=== PATIENT | female | born 1990 | race Hispanic/Latino ===

== ENCOUNTER 2018-04-23 12:01 | Inpatient (IN) | payer OTHER ==
[2018-04-23] MEDS ORDERED: Ringers Lactate 1,000 ML IV PRN (13:00)
[2018-04-23] MEDS ORDERED: Ringers Lactate 1,000 ML IV SCH (13:00)
[2018-04-23] MEDS ORDERED: CEFAZOLIN/SWI 2gm 2 GM/20 ML SYR IV SCH (13:15)
--- NOTE | 2018-04-23 13:26 | RAD REPORT ---
EXAM DESCRIPTION: RAD - Abdomen 1 View (KUB) - 04/23/2018 12:59 pm CLINICAL HISTORY: . Assess presentation FINDINGS: Breech presentation. Spine maternal right
[2018-04-23 13:35] LABS: RPR Titer ND
[2018-04-23 13:39] LABS: Urine Appearance CLEAR; Urine Bilirubin NEGATIVE (NEG); Urine Blood 3+ (NEG); Urine Color DK YELLOW; Urine Glucose NEGATIVE (NEG); Urine Protein TRACE (NEG); Urine Specific Gravity 1.025 (1.005-1.030)
[2018-04-23 13:41] LABS: Absolute Lymphocytes (CBC) 2.2 K/uL (0.7-4.9); Absolute Monocytes 0.7 K/uL (0.1-1.3); Absolute Neutrophil 5.5 K/uL (1.8-8.0); Basophils % 0.4 % (0-1.3); Eosinophils % 1.9 % (0-4.4); Hematocrit 40.9 % (36.0-45.0); Lymphocytes % 25.5 % (15.3-44.8); MCH 30.5 pg (27.0-35.0); Monocytes % 7.8 % (3.3-12.3)
[2018-04-23 13:43] LABS: Urine Microscopic Reflex ORDER UMIC
[2018-04-23] MEDS ORDERED: CARBOPROST TROME 250 MCG/ML IM ONE (13:50)
[2018-04-23] MEDS ORDERED: METHYLERGONOVINE 0.2MG/ML AMP IM ONE (13:50)
[2018-04-23 13:51] LABS: Protime INR 1.03
--- NOTE | 2018-04-23 14:01 | CON ---
Ms. Gupta is scheduled for on Saturday because of breech presentation. Was seen in my off ice and noted to be about 1.5 cm, still breech. Fairly thin cervix. Left the office and then came t o labor and delivery an hour or so later reporting vaginal bleeding. Slight bleeding. Nothing to tolbert ggest abruption of course and the patient is having contractions. At this stage it looks like it is probably early labor. According to nurse's exam, she was 3 cm. We will get an either quick flat lat er and ultrasound to determine the baby still breech for sure, watch her for an hour or so, and if sh e is in labor, go ahead and proceed with delivery at this point. Full discussion with patient and max willis. ANNE-MARIE/BERT Voice ID: [id number] Report ID: [id number]
[2018-04-23] MEDS ORDERED: NA CIT/CITRIC AC 30 ML ORAL UDC PO ONE (14:05)
[2018-04-23 14:09] LABS: Urine Bacteria 20-50 /HPF (<20); Urine Culture Reflex Order REFLEXED
[2018-04-23] MEDS ORDERED: METOCLOPRAMIDE 10 MG/2mL INJ ONE (14:17)
[2018-04-23] MEDS ORDERED: NA CIT/CITRIC AC 30 ML ORAL UDC ONE (14:17)
[2018-04-23] MEDS ORDERED: FAMOTIDINE 20 MG/2 ML VIAL IV ONE (14:17)
[2018-04-23] MEDS ORDERED: METOCLOPRAMIDE 10 MG/2mL INJ IV SCH (15:00)
[2018-04-23] MEDS ORDERED: Oxycodone HCl/Acetaminophen 1 TAB TAB PO PRN (15:29)
[2018-04-23] MEDS ORDERED: ONDANSETRON 4 MG (ODT) TAB PO PRN (15:29)
[2018-04-23] MEDS ORDERED: ONDANSETRON 4 MG/2 ML VIAL IV PRN (15:29)
[2018-04-23] MEDS ORDERED: KETOROLAC 30 MG/ML INJ IM PRN (15:29)
[2018-04-23] MEDS ORDERED: KETOROLAC 30 MG/ML INJ IV PRN (15:29)
[2018-04-23] MEDS ORDERED: IBUPROFEN 200 MG TAB PO PRN (15:29)
[2018-04-23] MEDS ORDERED: BISACODYL 10 MG RECTAL SUPP RECT PRN (15:29)
[2018-04-23] MEDS ORDERED: ACETAMINOPHEN 500 MG TAB PO PRN ×2 (15:29)
[2018-04-23] MEDS ORDERED: D5LR 1,000 ML with OXYTOCIN 20 UNIT IV SCH ×2 (16:00)
[2018-04-23] MEDS ORDERED: OXYTOCIN/LR 20 UNIT/1,000 ML BAG IV SCH (16:00)
--- NOTE | 2018-04-23 16:23 | PN ---
The patient is scheduled for on Saturday because of breech presentation. However, comes into Labor and Delivery in labor, 3 cm. Definite breech presentation. Bloody show. Tiffany every 2 -3 minutes. We have hydrated her. Dr. Ratliff is here. Full preoperative counseling has been given in the office, in fact H and P was done today, and we will proceed on with expeditious for delivery. ANNE-MARIE/BERT Voice ID: [id number] Report ID: [id number]
[2018-04-23] MEDS ORDERED: INFLUENZA VACCINE (for 3y+) 0.5 ML DOSE IMVAC ONE (17:00)
--- NOTE | 2018-04-23 19:50 | OP ---
Surgeon: Reynaldo Mai MD Glass Ribbon Machine Operator: Dr. Ratliff' group. A 38 weeks 3 days, breech presentation. Scheduled for on Saturday. Went into an active labor . Decision was made to proceed with section. Infection, blood loss, anesthetic complicatio ns, injury to bladder, bowel, ureter, postoperative complications, clots in legs, pneumonia discussed . The patient knows fully well this does not constitute all the possible problems that could occur d uring or following surgery. Anesthesia: Carin Rodriguez for anesthesia. Spinal block anesthesia was performed . Procedure In Detail: The patient was prepped and draped. Timeout was performed. A Pfannenstiel inc ision was then created. Incision was carried to the fascia. Fascia was incised and incision carried transversely bilaterally. Anterior fascial plane was developed with both blunt and sharp dissection , then posterior fascia plane. Rectus muscle was . Peritoneum entered bluntly. Low transv erse uterine incision created. A 7 pound, 15 ounce male delivered without difficulties. Apga rs 9 and 9. Cord blood specimen was obtained. The placenta was removed manually. Uterus cleared of clot and blood and exteriorized. Cervical os was dilated with ring clamp. The uterus closed with a running-locked stitch of 1 chromic. A small bleeders fulgurated in the bladder flap. Gutters clear ed of clot and blood. Uterus was replaced in the peritoneal cavity. Reinspection of suture line michelle wed no further bleeding. Estimated blood loss during the procedure 850 cc. Muscles were reapproxima cristina using 0 Vicryl subcutaneous. The fascia was closed using PDS #1, subcutaneous tissue was closed with 2-0 plain. Absorbable lemuel placed and then metal lemuel. The patient been given 2 g of Anc ef for prophylaxis. Tolerated all procedures well. Transferred back to her room in good condition. Final Diagnoses: Term intrauterine , 38 weeks 3 days, active labor, primary sectio n for breech presentation. Spinal block anesthesia. ANNE-MARIE/BERT Voice ID: [id number] Report ID: [id number]
[2018-04-23] MEDS ORDERED: CEFAZOLIN/SWI 2gm 2 GM/20 ML SYR IVP SCH (22:00)
[2018-04-23] MEDS ORDERED: CEFAZOLIN 2 GM in NA CHLORIDE 0.9% 100 ML IVPB ONE (22:00)
[2018-04-23 22:44] LABS: RPR (Rapid Plasma Reagin) NON-REACT (NON-REACT)
[2018-04-24] MEDS: MAGNESIUM HYDROXIDE 8% 30 ML PO PRN ×2 (09:00→21:14)
--- NOTE | 2018-04-24 09:21 | PREOPHP ---
Date of Admission: 04/23/2018 A 27-year-old, 2, para 0, at 39 weeks' and 1 day, breech presentation. Full discussion about options. Baby is well seated into the pelvis and I do not think rotation is an option. Infection, blood loss, anesthetic complications, injury to bladder, bowel, ureter, postoperative complications, clots in legs, and pneumonia discussed. The patient knows fully well this does not constitute all th e possible problems that could occur during or following surgery, and knows that future surgeries meme l have to be probably . Family History: Grandmother and several uncles with hypertension. An aunt of the maternal side with a stroke. Same side, another aunt with heart attack. Allergies: THE PATIENT HAS NO ALLERGIES. Medications: She has been on vitamins. Social History: She does not smoke. Physical Examination: HEENT: Clear. Pupils equal, round, and reactive to light and accommodation. Conjunctivae well perf used. No oral, lingual, or buccal lesions. Chest and Lungs: Clear. Heart: Without murmurs, thrills, heaves, or rubs. Breasts: Not examined. Abdomen: Term size. Extremities: Clear. Assessment And Plan: The patient is 2 cm and the baby is still definitely breech. We will give flat plate on Saturday morning to see if the baby is rotated. If it has not rotated, we will proceed with primary section for delivery. Full discussion with the patient and family member. ANNE-MARIE/BERT Voice ID: [id number]
[2018-04-24] MEDS: DIPHENHYDRAMINE 25 MG TAB/CAP PO PRN ×2 (11:28→20:57)
[2018-04-24] MEDS: Oxycodone HCl/Acetaminophen 1 TAB TAB PO PRN (14:30)
[2018-04-24] MEDS ORDERED: MAGNESIUM HYDROXIDE 8% 30 ML PO PRN (15:29)
[2018-04-25] MEDS: Oxycodone HCl/Acetaminophen 1 TAB TAB PO PRN ×2 (00:35→08:02)
--- NOTE | 2018-04-25 05:16 | DS ---
Hospital Course: A 28-year-old primigravida, 38 weeks 3 days, scheduled for section next Mo nday at 39 weeks. Went into spontaneous labor. Delivered a 7 pound, 15 ounce male at breech. Apgars 9 and 9. Spinal block anesthesia. 850 cc blood loss. Ancef for prophylaxis. Postoperativ aisha has been afebrile. Output is good. We will discontinue her Samuel and IV. If all goes well, sen d her home tomorrow afternoon, if not, Saturday morning. In my absence, she will see Dr. Brewer i f she has any problems. Full postoperative talk. Tramadol has been given for prescription to take h ome. She knows to come see me next week in the office for staple removal. Over the weekend to call Labor and Delivery if any problems such as fever, severe pain, heavy bleeding, or any other clinical problems occur. Diagnoses: At this point is intrauterine gestation, 38 weeks 3 days, breech presentation, spontaneou s labor, primary section, spinal block anesthesia. ANNE-MARIE/BERT Voice ID: [id number] Report ID: [id number]
[2018-04-25] MEDS ORDERED: INFLUENZA VACCINE (for 3y+) 0.5 ML DOSE IMVAC ONE (09:21)
[2018-04-26 20:49] LABS: HBsAG Nonreactive (Nonreactive)
== END 2018-04-25 10:00 | disposition home or self-care (01) | DRG 766 ==
LOC: L&D 12:01 → 2ND-WC 12:59
PROVIDERS: ADMIT Specialist; ATTEND Specialist
PROC: 10D00Z1 Extraction of Products of Conception, Low, Open Approach (ICD-10-PCS; principal; 2018-04-23 14:30)
DX: O32.1XX0 Maternal care for breech presentation, not applicable or unspecified (principal); Z3A.39 39 weeks gestation of pregnancy; Z37.0 Single live birth
CPT/HCPCS: 36415; 74018; 81003; 81015; 85014; 85025; 85610; 85730; 86592; 86900; 86901; 87077; 87086; 87088; 87186; 87340; 88307; 99218; J0690; J2210; J2405; J2590; J2765; Q2035